=== PATIENT | female | born 2000 | race Caucasian/White ===

== ENCOUNTER 2025-06-02 09:17 | Emergency (ER) | payer OTHER, SELFPAY ==
--- OUTSIDE RECORDS SUMMARY | 2018-12-28 06:15 | XMS_ITS | Continuity of Care Document ---
Author Organization [facility] Address [address] [place] [address] Phone Care Team Providers Care Hoop Riveting Machine Operator Helper Name Role Phone Zhang Simon MD Unavailable Unavailable Allergies, Adverse Reactions, Alerts Substance Reaction Status Criticality No Known Allergies Active No Inform ation Medications Medication Instructions Dosage Effective Dates (start - stop) Status Comments olopatadine 0.1 % eye drops instill 1 drop by ophthalmic route 2 times every day into both eyes 1 drop - Active fluorometholone 0.1 % eye drops,suspension instill 1 drop by ophthalmic route 4 times every day into both eyes 1 drop - Active Zaditor 0.025 % (0.035 %) eye drops instill 1 drop by ophthalmic route 2 times every day into affected eye(s) 1.00 drop - No Longer Active Procedures Procedure Date Office/outpatient Visit, Est Office/outpatient Visit, New Advance Directives Directive Yes / No Effective Date File Name No Information Encounters Encounter Description Practice Location Reason(s) For Visit Diagnoses Date Provider Providers Copied on Encounter Office/outpa tient Visit, Est [facility], [address] [place] [address] [address], [place], [place], [id number], [place] tel:[phone] SEC Dragan WOLFE Professional 2 week f/u GPC/w Allergic Conjunctiviti s (chief complaint) GPC (giant papillary conjunctivit is)Allergic conjunctivit is of both eyes [address] Holcomb. [address] [facility], [facility] [place], [id number], [place]. tel:[phone] Referring Provider: Yaw Bello OD, [facility] [address] [facility], [place], [address]. tel:[phone] Office/outpa tient Visit, 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 [address] [facility], [address], [place], [place], [address], [place]. tel:[phone] Referring Provider: Yaw Bello OD, [facility] [address] [place], [address]. tel:[phone] Family History Family Member Type Diagnosis Age At Onset Father Problem (finding) Diabetes mellitus Payers Payer name Insurance type Covered republican ID Ruth rodriguez(s) Terrytna [id number] Social History Type Description Quantity Date Captured Comments Alcohol Use Details No Caffeine Use Details Tobacco Use Status Current non-smoker Smoking Status Never smoker Non-Smoking Tobacco Use Details : No Details Available : No Details Available Sex Female Chief Complaint And Reason For Visit From encounter dated '12/28/2018 11:15'. 2 week f/u GPC/w Allergic Conjunctivitis (chief complaint). Description: The 18 year old female presents for evaluation of 2 week f/u GPC/w Allergic Conjunctivitis in the right eye and left eye. Patient states her eyes are doing much better. Patient ran out of FML gtt and still using the olopatadine bid OU. Reason For Referral Reason For Referral No Information Plan Of Treatment Date Type Action Status Patient Education Learning About Your Eye s completed Patient Education Learning About Your Eye s completed History Of Present Illness Encounter Date Complaint History Of Prese nt Illness 2 week f/u GPC/w All ergic Conjunctivitis The 18 year old female presents for evaluation of 2 week f/u GPC/w Allergic Conjunctivitis in the right eye and left eye. Patient states her eyes are doing much better. Patient ran out of FML gtt and still using the olopatadine bid OU. evaluation The 18 year old female presents for evaluation of severe giant papillary conjunctivitis ou per Dr. Bello. Patient used zaditior but stopped because it made her eyes more red and hurt. Patient hasn't worn contacts x 3 days. Patient used Moxifloxacin and Poly. Patient states she had pink eye November 08. Patient also used Pazeo and Durezol which cleared her eye up and hasn't used those 2 drops since December 03. Patient states eyes still get swollen and red. Functional Status Date Functional Assessmen t No Information Instructions Date Instruction Additional Infor emmanuel Impression/Plan Impression/Plan Assessments Type Assessment Date assessment GPC (giant papillary conjunctivi tis) assessment Allergic conjunctivitis of both eyes Patient Care Teams Name Effective Dates (start - stop) Status Members No Information
[2025-06-02] VITALS (7 sets, daily range): BP systolic 115–136; BP diastolic 75–87; PULSE 82–101; RESP 13–19; TEMP 36.9; O2SAT 98–100
--- NOTE | ~2025-06-02 | XR_ITS ---
Clinical history:CVA EXAM:X-ray chest one view portable TECHNIQUE:A single portable AP upright frontal image of the chest was obtained Comparisons:None available FINDINGS: Heart is not enlarged. No pneumothorax. No pleural effusion. No free air the diaphragm. Small opacities in the lower lungs. IMPRESSION: 1.Small opacities in the mid and lower lungs which represents atelectasis/scarring or infiltrates. If symptoms persist or worsen, consider a short-term follow-up study or additional imaging for further assessment. Reviewed, dictated and finalized at location Q. IMPRESSION: 1.Small opacities in the mid and lower lungs which represents atelectasis/scarr ing or infiltrates. If symptoms persist or worsen, consider a short-term follow-up study or additio nal imaging for further assessment.
--- NOTE | ~2025-06-02 | CT_ITS ---
EXAMINATION: CT brain wo con DATE: 06/02/2025 09:35 INDICATION: Right-sided numbness. Left-sided headache TECHNIQUE: Computed tomography (CT) of the head was performed without intravenous contrast. The dose-length product was 529.67 mGy-cm. COMPARISON: None FINDINGS: No acute intracranial hemorrhage. No mass effect. No midline shift. No hydrocephalus. No skull fracture. Visualized paranasal sinuses mastoid air cells are clear. IMPRESSION: 1. No acute intracranial hemorrhage. No mass effect. Reviewed, dictated and finalized at location Q.
--- NOTE | ~2025-06-02 | CT_ITS ---
CTA NECK, CTA HEAD Clinical History: r facial numbness Comparison: Noncontrast CT head today TECHNIQUE: Helical images thoracic inlet to vertex IV contrast information not listed in PACS Coronal, sagittal reformats. Multi planar MIPS CT images acquired with automatic exposure control for dose reduction DLP: 973 mGy-cm Findings: NASCET Criteria utilized CTA NECK Aortic arch: No aneurysm or dissection. Great vessel origins: No stenosis. CCAs: No stenosis. Cervical ICAs: No stenosis. Vertebral Arteries: Patent. Lung Apices: Clear. Thyroid: Unremarkable. Nodes: No enlarged nodes. Bones: No acute bony abnormality. CTA HEAD: Aneurysms: None. Intracranial ICAs: Patent, unremarkable. ACAs and their distal branches: Patent, unremarkable. A-Comm: Identified. Patent, unremarkable. MCAs and their distal branches: Patent, unremarkable. Basilar artery: Patent, unremarkable. hydraulic oil tool operator and their distal branches: Patent. Right P1 congenitally absent; origin P-comm supply. P-Comms: Both side identified. IMPRESSION: CTA NECK: 1. No acute findings. CTA HEAD: 1. No acute findings. Reviewed, dictated and finalized at location R.
--- NOTE | 2025-06-02 09:28 | ECG_ITS ---
Test Date: 2025-06-02 09:40:51 Measurements Intervals [place] Rate: 77 P: 6 UT: 129 QRS: 3 QRSD: 93 T: -3 QT: 375 QTc: 426 Interpretive Statements SINUS RHYTHM VOLTAGE CRITERIA FOR LEFT VENTRICULAR HYPERTROPHY MINIMAL Q WAVES- HIGH LATERAL LEADS BASELINE ARTIFACT- I, II ,III, AVR, AVF, V1 BORDERLINE ECG No previous ECG available for comparison Electronically Signed On 06-02-2025 10:53:52 CDT by Ryder Rodgers D.O.
[2025-06-02 09:38] LABS: Hematocrit 45.1 % (37.0-47.0); Hemoglobin 15.0 g/dL (12.0-15.0); Immature Granulocyte Percent A 0.1 % (0-0.5); Lymphocytes Absolute Auto 2.51 K/mm3 (0.9-3.2); Mean Corpuscular HGB Conc 33.3 g/dl (32-36); Mean Corpuscular Hemoglobin 28.7 pg (26-34); Mean Corpuscular Volume 86.4 fl (80-100); Nucleated Red Blood Cells Absolute Auto 0.000 K/mm3 (0.0-0.012); Nucleated Red Blood Cells Perc 0.0 % (0.0-0.2); Platelet Count Result 262 k/mm3 (150-375); Red Blood Count 5.22 M/mm3 (4.2-5.4); White Blood Count 7.0 K/mm3 (4.5-10.0)
--- OUTSIDE RECORDS SUMMARY | 2025-06-02 09:41 | XMS_ITS | Clinical Summary ---
Author Organization [facility] [address] Address [address] [place] [address] Phone Care Team Providers Care Manager Long Term Care Name Role Phone Danyelle Potter MD Primary Care Provider [phone] Allergies No known active allergies Medications famotidine (PEPCID) 40 mg tablet Take 1 tablet (40 mg total) by mouth daily Active azelastine (ASTELIN) 137 mcg (0.1 %) nasal spray Administer 2 sprays into each nostril 2 (two) times a day Active cetirizine (ZyrTEC) 10 mg tablet Take 1 tablet (10 mg total) by mouth daily Active Winlevi 1 % cream 2 (two) times a day 5 Active spironolactone (ALDACTONE) 50 mg tablet Take 1 tablet (50 mg total) by mouth daily Active triamcinolone (NASACORT) 55 mcg nasal inhaler Administer 1 spray into each nostril 2 (two) times a day Active norgestimate-et hinyl estradioL (ORTHO-CYCLEN) 0.25-0.035 mg per tabletIndicatio ns:Dysmenorrhea Take 1 tablet by mouth daily 84 tablet 4 5 Active Active Problems Problem Noted Date Diagnosed Date Obesity (BMI 30-39.9) 08/31/2019 Myopia 02/24/2017 Dysmenorrhea 03/20/2014 Overview (02/24/2017): Cramps, irreg periods, hirsuit side cobos, acne - REFER Dr. Mckeon as desires OCPs 02/16 Hypermobility syndrome 03/20/2014 Overview (02/12/2017): Health care maintenance 03/15/2013 Overview (02/12/2017): Resolved Problems Problem Noted Date Diagnosed Date Resolved Date Folliculitis 03/20/2014 02/12/2017 Overview (11/07/2016): Folliculitis Overweight 03/20/2014 08/31/2019 Overview (02/24/2017): Improved 02/16 eating less Immunizations Immunization Administration Dates Next Due DTaP 5 Pertussis 01/23/2005, 1,05/07/2000,03/12,01/02/2000 HPV, Quadrivalent 02/27/2012,06/19/2011,02/12/20 11 Hep B / HiB 02/11/2001,01/02/2000 Hep B, Adolescent or Pediatric 1999 Hib (HbOC) 03/12/2000 IPV 01/23/2005, 1,03/12/2000,01/01 MMR 01/23/2005,2000 Meningococcal MCV4P (Menactra) 02/24/2017 Meningococcal Polysaccharide (Menomune) 02/11/2011 Pneumococcal Conjugate 7-Valent 02/12/20,08/20/2000,07/02/2000,03/12 Tdap 02/11/2011 Varicella 03/20/2014,2000 Surgical History Surgery Date Site/Laterality Comments TONSILLECTOMY 08/03/2001 - 08/02/2002 Medical History Medical History Date Comments Strunk 1999 7-3 40 wks to 21 y preg Anxiety and depression 2019 Medicatio n x 3-4 months, then discontinued. Family History Medical History Relation Name Comments Anxiety disorder Father SLIGHT Diabetes Father Anxiety disorder Maternal Grandmother Diabetes Other 1 Sudden Other 2 NONE Lupus Other 3 Scoliosis Other 4 Heart attack Paternal Grandfather Relation Name Status Comments Father Maternal Grandmother Other 1 Other 2 Other 3 Other 4 Paternal Grandfather Social History Tobacco Use Types Packs/Day Years Used Date Smoking Tobacco: Never Smokeless Tobacco: Never Tobacco Cessation:Counseling Given: Not Answered Alcohol Use Standard Drinks/Week Comments No 0 (1 standard drink = 0.6 oz pur e alcohol) Comments No Sex and Gender Information Value Date Recorded Sex Assigned at Not on file Legal Sex Female 1:51 AM BLOW MOLD OPERATOR Gender Identity Female 06/07/2020 9:59 AM BLOW MOLD OPERATOR Sexual Orientation Straight 06/07/2020 9: 59 AM BLOW MOLD OPERATOR 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 Not on file Not o n file Obstetrics History Para Term AB IAB SAB Ectopic Multiple Livin g Live Births 0 0 0 0 0 0 0 0 0 0 0 Last Filed Vital Signs Vital Sign Reading Time Taken Comments Blood Pressure 118/80 01/24/2025 12:13 PM CDT Pulse 82 12/15/2021 9:46 AM CDT Temperature 36.1 C (96.9 F) 12/12/2020 10:34 AM CDT Respiratory Rate 16 12/15/2021 9:46 AM CDT Oxygen Saturation 98% 12/15/2021 9:46 AM CDT Inhaled Oxygen Concentration - - Weight 77.1 kg (170 lb) 01/24/2025 12:13 PM CDT Height 163.8 cm (5' 4.5) 01/24/2025 12:13 PM CD T Body Mass Index 28.73 01/24/2025 12:13 PM CDT Plan of Treatment Health Maintenance Due Date Last Done Comments Depression Screening 1999 Hepatitis C Screening 1999 DTaP/Tdap/Td Vaccine (7 - Td or Tdap) 02/11/2021 02/11/2011, 01/23/2005, 02/11/2001, Additional history exists Cervical Cancer Screening 01/20/2024 01/19/2023, 07/2021 Influenza Vaccine (#1) 2025 Regular Well Visit/Exam 18-64 01/24/2026, 01/22/2024, 01/19/2023, Additional history exists Hepatitis B Screening Completed 02/11/2001 , 01/02/2000, 01/02/2000, Additional history exists Pneumococcal vaccine <65 Completed 001, 08/20/2000, 07/02/2000, Additional history exists HPV Vaccines Completed 02/27/2012, 06/03, 02/11/2011 Varicella Vaccines Completed 03/20/2014, 2000 Procedures Procedure Name Priority Date/Time Associated Diagnosis Comments PAP WITH REFLEX TO HIGH RISK HPV Routine 01/19/2023 10:45 AM CDT Screening for malignant neoplasm of the cervix from Last 3 Months or Most Recently Relevant to Health Maintenance Results * Pap with reflex to High Risk HPV (01/19/2023 10:45 AM CDT) Thin prep (Pap test) 01/19/2023 10:45 AM CDT 01/19/2023 10:45 AM CDT Narrative PATHOLOGY CH - 01/22/2023 11:23 AM CDT [facility] Department of Pathology [address] [place] [address] Final Report Note to Patients: This report may contain a detailed description of human tissue sent by a health care provider to the laboratory for pathologic evaluation. The content of this report is essential for diagnosis and may provide important critical findings. This information may be unfamiliar to patients to review without a medical professional present. It is advised that the patient review this report in the presence of a health care provider who can answer questions and explain the details. Patient Name: HEENA SUAREZ Address: [address] [place] [id number] Gender: F : 2000 (Age: 22) Service: Location: N : [id number] [facility] #: [id number] Patient Type: SPECIMEN Taken: 01/19/2023 Received: 01/19/2023 Accessioned:: 01/20/2023 Reported: 01/22/2023 Physician(s): MD Marilyn Li MD Diagnosis: SOURCE OF SPECIMEN Imaged Thinprep Pap Test w/ Reflex HPV - Clinical Studies Specialist Cytologic Material: STATEMENT OF ADEQUACY - Satisfactory for evaluation; endocervical/transformation zone component present GENERAL CATEGORIZATION: - Negative for intraepithelial lesion or malignancy ALANA Sorenson(ASCP) Report Electronically Reviewed and Signed Out By ALANA Sorenson(ASCP) 01/22/2023 11:23:50Specimen(s) Received: A: Imaged Thinprep Pap Test w/ Reflex HPV - Clinical Studies Specialist Cytologic Material Clinical History: Menstrual History: Previous Negative Pap The Pap test is a screening test used to aid in the detection of cervical cancer and its precursors. It should not be the sole means by which malignant and premalignant lesions are diagnosed. Both false negative and false positive results may occur. It also has poor sensitivity for the detection of endometrial lesions and should not be used to evaluate suspected endometrial abnormalities. For these reasons it is most important to obtain Pap tests at regular intervals. The performance characteristics of some immunohistochemical stains, fluorescence in-situ hybridization tests and immunophenotyping by flow cytometry cited in this report (if any) were determined by the Surgical Pathology Department at [facility] as part of an ongoing quality internship program and in compliance with federally mandated regulations drawn from the Clinical Laboratory Improvement Act of 1988 (CLIA '88). Some of these tests rely on the use of analyte specific reagents and are subject to specific labeling requirements by the US Food and Drug Administration. Such diagnostic tests may only be performed in a facility that is certified by the Department of Health and Human Services as a high complexity laboratory under CLIA '88. The FDA has determined that such clearance or approval is not necessary. This test is used for clinical purposes. It should not be regarded as investigational or for research. Nevertheless, federal rules concerning the medical use of analyte specific reagents require that the following disclaimer be attached to the report: This test was developed and its performance characteristics determined by the Surgical Pathology Department [facility]. It has not been cleared or approved by the U. S. Food and Drug Administration. Marilyn Mckeon MD LAB CYTOLOGY [place] [address] [place] [address] from Last 3 Months or Most Recently Relevant to Health Maintenance Insurance [facility] Care Teams Manager Long Term Care Relationship Specialty Start Date End Date Danyelle Potter MD [address] [place] [address] PCP - General 02/11/11
--- OUTSIDE RECORDS SUMMARY | 2025-06-02 09:41 | XMS_ITS | Clinical Summary ---
Author Organization [facility] Address [address] [place] [address] Phone Care Team Providers Care Milk Processing Worker Name Role Phone Provider, None Primary Care Provider Unavailabl e Allergies No known active allergies Medications etonogestrel (NEXPLANON) 68 MG Implant 1 implant subdermal 8 Active Active Problems No known active problems Social History Tobacco Use Types Packs/Day Years Used Date Smoking Tobacco: Never Smokeless Tobacco: Never Alcohol Use Standard Drinks/Week Comments Not Currently 0 (1 standard drink = 0.6 oz pur e alcohol) Sexually Active Control Partners Comments Not Currently Comments Unknown Sex and Gender Information Value Date Recorded Sex Assigned at Not on file Legal Sex Female 12:19 AM CDT Gender Identity Not on file Sexual Orientation Not on file Last Filed Vital Signs Vital Sign Reading Time Taken Comments Blood Pressure 116/76 06/23/2021 10:24 AM PILLOWCASE SEWER Pulse 123 06/23/2021 10:24 AM PILLOWCASE SEWER Temperature 37.1 C (98.8 F) 06/23/2021 10:24 AM PILLOWCASE SEWER Respiratory Rate 15 06/23/2021 10:24 AM PILLOWCASE SEWER Oxygen Saturation 98% 06/23/2021 10:24 AM PILLOWCASE SEWER Inhaled Oxygen Concentration - - Weight - - Height - - Body Mass Index - - Plan of Treatment Health Maintenance Due Date Last Done Comments Hepatitis C Virus (HCV) Screening 1999 Influenza Immunization (#1) 2025 SARS-COV-2 Immunization ( season) 2025 11/29/2020, 11/01/2020 Respiratory Syncytial Virus (RSV) Immunization (Adult) (1 - 1-dose 75+ series) 11/04/2074 Hepatitis B Immunization Completed 001, 01/02/2000, 01/02/2000, Additional history exists Pneumococcal Immunization Combined Aged Out 02/11/2001, 08/20/2000, 07/02/2000, Additional history exists No longer eligible based on patient's age to complete this topic Human Papillomavirus (HPV) Immunization Completed 02/27/2012, 06/19/2011, 02/11/2011 Meningococcal Immunization (ACWY) Completed 02/24/2017, 02/11/2011 DTaP/Tdap/Td Immunization Discontinued 2020, 02/11/2011, 01/23/2005, Additional history exists TdaP Immunization Completed 03/12/2021, 02/11/2011 Rotavirus Immunization Aged Out No lo nger eligible based on patient's age to complete this topic Insurance Care Teams Milk Processing Worker Relationship Specialty Start Date End Date Provider, None [place] PCP - General 06/26/21
--- OUTSIDE RECORDS SUMMARY | 2025-06-02 09:41 | XMS_ITS | Patient Health Record ---
Author Organization [facility] Address [address] [place], [place] [address] Care Team Providers Care Bale Tie Machine Operator Name Role Phone ELIUD DE JESUS MD, [facility] Primary Care Provider Un available Elizabeth Duran Unavailable [phone] Allergies No Known Allergies Reason For Referral No Information Medications Medication SIG (Take, Route, Fr equency, Duration) Notes Start Date End Date Status Spironolactone 100 MG TAKE 1 TABLET BY M OUTH EVERY DAY FOR 30 DAYS for 90 Active Famotidine Active Radha 0.25-35 MG-MCG Oral for 84 Days Active Winlevi 1 % APPLY TO AFFECTED AR EA(S) TWICE DAILY. for 30 days Active Olopatadine-Mometasone Active Immunizations Vaccine Route Administration Date Status Comme nts Influenza, unspecified formu lation (CPT 87216 Inactive) Unknown 05/02/2024 Refused Pneumococcal polysaccharide PPV23 Unknown 05/02/2024 Re fused Influenza, unspecified formu lation (CPT 40358 Inactive) Unknown 04/26/2025 Refused Pneumococcal polysaccharide PPV23 Unknown 04/26/2025 Re fused Social History Tobacco Use: Social History Observation Description Date Details (start date - stop date) Never Smoker NA - NA Tobacco Use/Smoking Question Answer Notes Are you a nonsmoker Problems Problem Type SNOMED Code ICD Code Onset Dates Problem Status W/U Status Risk Notes Problem Acne vulgaris (55718947) Acne vulgaris (L70.0) Active confirmed Patient intolerant of spironolactone 100 mg p.o. daily, decreased to 50 and was able to tolerate the medication and subsequently cleared when winlevi was added to her regimen, will continue Vital Signs Weight 175 lbs 04/26/2025 Encounters Encounter Location Date Provider [facility] [address] [place], [place] [id number] 08/10/2024 Elizabeth Duran Acne vulgaris L70.0 [facility] [address] [place], [place] [phone] 04/26/2025 Elizabeth Roger Acne vulgaris L70.0 Assessments Encounter Date Diagnosis (ICD Code) Assessment Notes Treatment Notes Treatment Clinical Notes Section Notes 08/10/2024 Acne vulgaris (ICD-10 - L70.0) Patient intolerant of spironolactone 100 mg p.o. daily, decreased to 50 and was able to tolerate the medication, however the clearance of her acne was only partial. For that reason we will add winlevi cream twice daily 04/26/2025 Acne vulgaris (ICD-10 - L70.0) Patient intolerant of spironolactone 100 mg p.o. daily, decreased to 50 and was able to tolerate the medication and subsequently cleared when winlevi was added to her regimen, will continue 08/10/2024 Other Learning About Sun Damage and Your Skin material was published Plan Of Treatment Next Appt Details Provider Name:Elizabeth Duran , 04/25/2026 02:30:00 PM, [address], [address], [place], [place], [id number], Insurance Providers Payer Name Payer Address Payer Phone Subscriber Number Group Number Insured Name Patient Relationship to Insured Coverage Start Date Coverage End Date [employer] [id number] [place] [address] [id number] HEENA SUAREZ Self - patient is the insured Medical (General) History Medical History History ICD Code G.E.R.D.
--- OUTSIDE RECORDS SUMMARY | 2025-06-02 09:41 | XMS_ITS | Patient Health Record ---
Author Organization [facility] [place] ([address]) Address [address] [place] [address] Care Team Providers Care Applications Support Analyst Name Role Phone Farrah Noguera Primary Care Provider Mary Gale Unavailable [phone] Allergies Allergen (clinical drug ingredient) Drug/Non Drug Allergy documented on EMR Reaction Allergy Type Onset Date Status Dust (uncoded) Sinus inflammati on and drainage Allergy Active Reason For Referral No Information Medications Medication SIG (Take, Route, Frequency, Duration) Notes Start Date End Date Status Cetirizine HCl 10 MG 1 tablet Orally Onc e a day; Duration: 30 days Active Triamcinolone Acetonide 55 MCG/ACT 1 spray in each nostril Nasally Twice a day; Duration: 90 days Active Apri 0.15-30 MG-MCG 1 tablet Orally Once a day Active Cetirizine HCl 10 MG TAKE 1 TABLET BY [facility] EVERY DAY FOR 30 DAYS; Duration: 90 Not-Taking Triamcinolone Acetonide 55 MCG/ACT ADMINISTER 1 SPRAY INTO EACH NOSTRIL TWICE A DAY; Duration: 30 Not-Taking Azelastine HCl 137 MCG/SPRAY SPRAY 2 SPRAYS INTO EACH NOSTRIL TWICE A DAY; Duration: 90 Active Winlevi 1 % External; Duration: 30 Days Active Spironolactone 50 MG 1 tablet Orally Onc e a day Active Olopatadine HCl 0.6 % 2 sprays in each nostril Nasally Twice a day; Duration: 90 days Active Nasal Washes N/A as directed intranasally Active Famotidine 40 MG 1 tablet Orally Once a day Active Immunizations Vaccine Route Administration Date Status Comme nts Hepatitis B (06-21) Unknown 02/11/2001 Administered Por tobias Information NOC PedvaxHIB Unknown 1999 Administered Portal In formation NOC Tdap Unknown 03/12/2021 Administered Portal Infor mation NOC Prevnar 13 Unknown 02/11/2001 Administered Portal I nformation Influenza Unknown 06/24/2023 Administered Portal Infor mation Social History Tobacco Use: Social History Observation Description Date Details (start date - stop date) Never Smoker NA - NA Sex Assigned At : Social History Observation Description Sex Assigned At Female Tobacco Control (Standard) Question Answer Notes Tobacco use: Nonsmoker AUDIT-C (Standard) Question Answer Notes Did you have a drink contain ing alcohol in the past year? Yes How often did you have a dri nk containing alcohol in the past year? 2 to 4 times a month (2 points) How many drinks did you have on a typical day when you were drinking in the past year? 1 or 2 drinks (0 point) How often did you have six o r more drinks on one occasion in the past year? Less than monthly (1 point) Points 3 Interpretation Positive Problems Problem Type SNOMED Code ICD Code Onset Dates Problem Status W/U Status Risk Notes Problem Allergic rhinitis caused by pollen (disorder) (42340174) Allergic rhinitis due to pollen (J30.1) Active confirmed Problem Allergic rhinitis caused by animal hair and dander (358910591081702 ) Allergic rhinitis due to animal (cat) (dog) hair and dander (J30.81) Active confirmed Problem Allergic rhinitis (08744289) Other allergic rhinitis (J30.89) Active confirmed Problem Gastro-esophagea l reflux disease without esophagitis (982331306) Gastro-esophage al reflux disease without esophagitis (K21.9) Active confirmed Vital Signs Oximetry 100 % 01/02/2025 Blood pressure diastolic 78 mm Hg 01/02/2025 Height 64 in 01/02/2025 Blood pressure systolic 121 mm Hg 01/02/2025 Weight 172.6 lbs 01/02/2025 BMI 29.62 kg/m2 01/02/2025 Encounters Encounter Location Date Provider Diagnosis [facility] [address] [place] [address] 07/11/2024 Mary Moore Other allergic rhinitis J30.89 ; Headache, unspecified R51.9 ; Gastro-esophageal reflux disease without esophagitis K21.9 and Elevated blood-pressure reading, without diagnosis of hypertension R03.0 [facility] [address] [place] [address] 12/20/2024 Mary Moore Other allergic rhinitis J30.89 ; Headache, unspecified R51.9 ; Gastro-esophageal reflux disease without esophagitis K21.9 and Elevated blood-pressure reading, without diagnosis of hypertension R03.0 [facility] [address] [place] [address] 01/02/2025 Mary Moore Allergic rhinitis du e to pollen J30.1 ; Allergic rhinitis due to animal (cat) (dog) hair and dander J30.81 ; Other allergic rhinitis J30.89 ; Headache, unspecified R51.9 ; Gastro-esophageal reflux disease without esophagitis K21.9 and Elevated blood-pressure reading, without diagnosis of hypertension R03.[address] [address] 01/03/2025 Mary Moore Assessments Encounter Date Diagnosis (ICD Code) Assessment Notes Treatment Notes Treatment Clinical Notes Section Notes 07/11/2024 Other allergic rhinitis (ICD-10 - J30.89) Lashanda endorses upper airway symptoms concerning for uncontrolled atopic disease, primarily nasal congestion, pressure and sinus headaches. She saw her PCP who ordered ImmunoCaps that were positive to DM. - Lashanda is unable to hold Pepcid at this time. Due to this unable to perform SPT for further evaluation. - Discussed avoidance measures and medication regimen. Lashanda reports significant benefit since starting daily regimen. - If symptoms persist despite these interventions, consider SPT to full aeroallergen panel. - Can also consider ENT and neurology evaluation, which we discussed last visit. - Follow-up in 4-6 months for further evaluation and management 07/11/2024 Headache, unspecified (ICD-10 - R51.9) Discussed correlation between headache disorders and uncontrolled atopic disease. Recommend aggressive treatment of atopic disease, see plan above. - Discussed consult with neurology, directed to [facility] 12/20/2024 Other allergic rhinitis (ICD-10 - J30.89) Lashanda endorses upper airway symptoms concerning for uncontrolled atopic disease, primarily nasal congestion, pressure and sinus headaches. She saw her PCP who ordered ImmunoCaps that were positive to DM. - Lashanda previously did not want to undergo SPT due to GERD symptoms, unable to hold Pepcid. She returns today interested in undergoing additional evaluation after her upper airway symptoms increased this Spring. She will need to hold antihistamines for 7-10 days prior to testing. - Discussed avoidance measures and medication regimen. - Return in 2 weeks for skin testing to aeroallergens 12/20/2024 Headache, unspecified (ICD-10 - R51.9) Discussed correlation between headache disorders and uncontrolled atopic disease. Recommend aggressive treatment of atopic disease, see plan above. - Discussed consult with neurology, directed to [facility] 01/02/2025 Allergic rhinitis due to pollen (ICD-10 - J30.1) Given the history and symptoms, skin testing was performed to common aeroallergens to determine atopic status. Lashanda clearly suffers from atopic disease based upon our skin testing today. Accordingly, we have introduced a new, aggressive medication regimen, discussed nasal washes and allergy-specific avoidance measures. We also discussed adjunctive therapies including subcutaneous, specific allergen immunotherapy as relates to the treatment and prevention of atopic disease. She is currently considering the risks, benefits and alternatives to this care. Risks: bleeding, infection, allergic reaction, anaphylaxis; Benefits: reduced need for medications, improved symptoms, disease modification. Alternatives: watch/wait, change medication regimen, improve allergy avoidance measures. - Previously had ImmunoCaps drawn positive to DM only, various positives noted today. - Lashanda is interested in SCIT via traditional scheduled. Premedicate with Zyrtec. Will send AIE when she is starting SCIT. - Follow-up in 4 weeks to start SCIT 01/02/2025 Allergic rhinitis due to animal (cat) (dog) hair and dander (ICD-10 - J30.81) Follow allergen avoidance, meds and consider SCIT as an adjunctive treatment to current regimen 01/02/2025 Other allergic rhinitis (ICD-10 - J30.89) Follow allergen avoidance, meds and consider SCIT as an adjunctive treatment to current regimen 12/20/2024 Gastro-esophagea l reflux disease without esophagitis (ICD-10 - K21.9) Lashanda admits to symptoms of GERD, currently taking Pepcid BID recommended by her PCP. - Lashanda reports she is unable to hold Pepcid due to worsening symptoms, previously recommended GI evaluation. She had a full work-up completed, confirming GERD with small hiatal hernia. Continues on Pepcid 07/11/2024 Gastro-esophagea l reflux disease without esophagitis (ICD-10 - K21.9) Lashanda admits to symptoms of GERD, currently taking Pepcid BID recommended by her PCP. - Lashanda reports she is unable to hold Pepcid due to worsening symptoms, consider GI evaluation. Instructed her to discuss with her PCP, she voiced understanding 07/11/2024 Elevated blood-pressure reading, without diagnosis of hypertension (ICD-10 - R03.0) BP elevated today without symptoms of urgency or emergency. Continue serial checks and follow-up with PCP 12/20/2024 Elevated blood-pressure reading, without diagnosis of hypertension (ICD-10 - R03.0) BP elevated today without symptoms of urgency or emergency. Continue serial checks and follow-up with PCP 01/02/2025 Headache, unspecified (ICD-10 - R51.9) Discussed correlation between headache disorders and uncontrolled atopic disease. Recommend aggressive treatment of atopic disease, see plan above. - Discussed consult with neurology, directed to [facility] 01/02/2025 Gastro-esophagea l reflux disease without esophagitis (ICD-10 - K21.9) Lashanda admits to symptoms of GERD, currently taking Pepcid BID recommended by her PCP. - Lashanda reports she is unable to hold Pepcid due to worsening symptoms, previously recommended GI evaluation. She had a full work-up completed, confirming GERD with small hiatal hernia. Continues on Pepcid 01/02/2025 Elevated blood-pressure reading, without diagnosis of hypertension (ICD-10 - R03.0) BP elevated today without symptoms of urgency or emergency. Continue serial checks and follow-up with PCP 07/11/2024 Other 01/02/2025 Other 12/20/2024 Other Plan Of Treatment No Information Insurance Providers Payer Name Payer Address Payer Phone Subscriber Number Group Number Insured Name Patient Relationship to Insured Coverage Start Date Coverage End Date [employer] Choice POS II [address] [place] [address] [id number] Lashanda Marcus Self - patient is the insured 3 Medical (General) History Surgical History Surgery Date(Month/Year) [place] Teeth 06/25/2020 Tonsil Removal 08/03/2001
[2025-06-02 09:52] LABS: INR 1.0; Prothrombin Time 13.0 Seconds (11.1-14.7)
[2025-06-02 09:53] LABS: Partial Thromboplastin Time 25.4 Seconds (22.3-36.8)
[2025-06-02 09:55] LABS: Alanine Aminotransferase 32 U/L (6-35); Albumin Level 4.8 g/dL (3.5-5.1); Alkaline Phosphatase 49 U/L (38-126); Anion Gap 10 mmol/L (4-12); Aspartate Amino Transferase 32 U/L (14-36); Bilirubin,Total 0.5 mg/dL (0.2-1.3); Blood Urea Nitrogen 17 mg/dL (7-17); Calcium 9.2 mg/dL (8.4-10.2); Carbon Dioxide 25 mmol/L (22-30); Chloride 103 mmol/L (98-107); Estimated CRCL calculation 96 ml/min; Estimated Glomerular Filt Rate > 60; Glucose 94 mg/dL (65-110); Potassium 3.9 mmol/L (3.4-5.0); Sodium 138 mmol/L (137-145); Total Protein 7.8 g/dL (6.3-8.2)
--- OUTSIDE RECORDS SUMMARY | 2025-06-02 11:01 | XMS_ITS | Clinical Summary ---
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 Patient Name: HEENA SUAREZ Address: [address] [place] [id number] Gender: F : 2000 (Age: 22) Service: Location: N : [id number] [facility] #: [id number] Patient Type: SPECIMEN Taken: 01/19/2023 Received: 01/19/2023 Accessioned:: 01/20/2023 Reported: 01/22/2023 Physician(s): MD Marilyn Li MD Diagnosis: SOURCE OF SPECIMEN Imaged Thinprep Pap Test w/ Reflex HPV - Spot Worker Cytologic Material: STATEMENT OF ADEQUACY - Satisfactory for evaluation; endocervical/transformation zone component present GENERAL CATEGORIZATION: - Negative for intraepithelial lesion or malignancy ALANA Sorenson(ASCP) Report Electronically Reviewed and Signed Out By ALANA Sorenson(ASCP) 01/22/2023 11:23:50Specimen(s) Received: A: Imaged Thinprep Pap Test w/ Reflex HPV - Spot Worker Cytologic Material Clinical History: Menstrual History: Previous [...] determined by the Surgical Pathology Department at [facility] as part of an ongoing quality control inspector heading program and in compliance with federally mandated [...] characteristics determined by the Surgical Pathology Department [facility]. It has not been cleared or approved by the U. S. Food and Drug Administration. Marilyn Mckeon MD LAB [place]OLOGY [place] [address] [place] [address] from Last 3 Months or Most Recently Relevant to Health Maintenance Insurance [facility] Care Teams Net Maker Relationship Specialty Start Date End Date Danyelle Potter MD [address] [place] [address] PCP - General 02/11/11
--- OUTSIDE RECORDS SUMMARY | 2025-06-02 11:01 | XMS_ITS | Clinical Summary ---
Author Organization [facility] Address [address] [place] [address] Phone Care Team Providers Care Machine Worker Name Role Phone Provider, None Primary [...] Comments Blood Pressure 116/76 06/23/2021 10:24 AM MARINE ENGINE DRIVER Pulse 123 06/23/2021 10:24 AM MARINE ENGINE DRIVER Temperature 37.1 C (98.8 F) 06/23/2021 10:24 AM MARINE ENGINE DRIVER Respiratory Rate 15 06/23/2021 10:24 AM MARINE ENGINE DRIVER Oxygen Saturation 98% 06/23/2021 10:24 AM MARINE ENGINE DRIVER Inhaled Oxygen Concentration - - Weight - [...] patient's age to complete this topic Insurance * Guarantor: Lashanda Marcus Account Type Relation to Patient Date of Phone Billing Address Personal/Family Self 2000 [id number] [address] [facility] Care Teams Machine Worker Relationship Specialty Start Date End Date Provider, None [place] PCP - General 06/26/21
--- NOTE | 2025-06-02 11:05 | ED.NEUROSD ---
HPI - Neuro Symptoms/Deficit General Chief Complaint: Neuro Symptoms/Deficit Stated Complaint: right sided numbness and left headache Time Seen by Provider: 06/02/25 10:09 Source: patient Mode of arrival: ambulatory Limitations: no limitations History of Present Illness HPI Narrative: This is a 24-year-old female with no significant past medical history who presents to the ED for numbness and headache. Patient states that she had onset of a left headache behind her left eye. She was sitting at work about an hour prior to arrival when she had onset of right hand numbness that radiated up to her forearm circumferentially and then up to her right face. She has never had this before. Denies weakness, changes in vision. Related Data Allergies Allergy/AdvReac Type Severity Reaction Status Date / Time No Known Allergies Allergy Verified 06/02/25 09:49 Review of Systems Review of Systems: Gen.: Denies fevers or chills Eyes: Denies eye pain or visual change ENT: Denies congestion Respiratory: Denies shortness of breath or cough CV: Denies chest pain or palpitations GI: Denies abdominal pain nausea, emesis or diarrhea denies burning, urgency, frequency or hematuria Musculoskeletal: Denies back pain or muscle pain Neuro: As per HPI Skin: Denies rash Except as documented, all other systems reviewed and negative Exam Narrative: APPEARANCE: No acute distress, nontoxic, resting in bed EYES: EOMI HEENT: Normocephalic, atraumatic, OMM RESPIRATORY: No respiratory distress Clear to auscultation bilaterally with no rhonchi wheezing or rales. CARDIOVASCULAR: Regular rate and rhythm without murmurs rubs or gallops. ABDOMINAL: Soft, nontender, nondistended, no rebound or guarding MUSCULOSKELETAl: Moves all extremities. No clubbing, cyanosis or edema. NEURO: Awake and alert. Following commands, speech normal, no focal deficits. NIHSS 1 due to numbness to the right face SKIN:: Warm, dry. No rashes lesions or abrasions PSYCHIATRIC: Normal affect/mood, Course Vital Signs Vital signs: Vital Signs Pulse Rate 93 06/02/25 09:38 Respiratory Rate 13 06/02/25 09:38 Blood Pressure 136/87 06/02/25 09:38 Pulse Oximetry 99 06/02/25 09:38 Temperature 98.5 F 06/02/25 09:39 Pulse Rate 101 H 06/02/25 11:31 Respiratory Rate 13 06/02/25 11:31 Blood Pressure 120/75 06/02/25 11:31 Pulse Oximetry 100 06/02/25 11:31 Oxygen Delivery Room Air 06/02/25 09:39 MDM - Neuro Symptoms/Deficit MDM Narrative Medical decision making narrative: 24-year-old female Presenting for right facial numbness. On initial evaluation patient was in no acute distress afebrile, hemodynamic stable. Patient is taken immediately to stroke., she did have numbness over the right side of her face only. NIH SS 1. CT head negative. Differentials include but are not limited to: CVA, migraine, electrolyte abnormality, viral syndrome Notable exam findings: NIHSS 1, remaining exam within normal limits Notable lab findings: CBC and CMP were without significant abnormalities. Troponin negative. Notable imaging findings: CT head showed no acute process. CTA head showed no acute process. Chest x-ray showed no acute process. Re-evaluation, patient had resolution of her numbness but had onset of a left-sided headache. This had happened previously with a prior migraine. Suspect that patient does have a complex migraine that caused her symptoms. She was given Compazine, Toradol, Benadryl it had near resolution of her headache. She was given a referral to Neurology for further evaluation. Patient was agreeable to this plan. Given strict return precautions. Medical Records Attestation: I reviewed the patient's medical records. Lab Data Attestation: I reviewed the patient's lab results. 06/02/25 09:31 06/02/25 09:31 Labs: Lab Results 06/02/25 06/02/25 Range/Units 09:21 09:31 WBC 7.0 (4.5-10.0) K/mm3 RBC 5.22 (4.2-5.4) M/mm3 Hgb 15.0 (12.0-15.0) g/dL Hct 45.1 (37.0-47.0) % MCV 86.4 (80-100) fl MCH 28.7 (26-34) pg MCHC 33.3 (32-36) g/dl RDW 12.0 (11.5-14.5) % Plt Count 262 (150-375) k/mm3 MPV 9.9 (7.4-10.4) fl Immature Gran % (Auto) 0.1 (0-0.5) % Neut % (Auto) 49.7 (45.5-73.1) % Lymph % (Auto) 36.0 (18.3-44.2) % [place] % (Auto) 9.5 H (2.6-8.5) % Eos % (Auto) 3.6 (0-4.4) % Baso % (Auto) 1.1 (0.2-1.2) % Lymph # (Auto) 2.51 (0.9-3.2) K/mm3 [place] # (Auto) 0.7 H (0.1-0.6) K/mm3 Eos # (Auto) 0.3 (0-0.3) K/mm3 Baso # (Auto) 0.1 (0.0-0.1) K/mm3 Abs Immat Gran (auto) 0.01 (0.00-0.031) K/mm3 Absolute Neuts (auto) 3.5 (1.3-6.7) K/mm3 Absolute Nucleated RBC 0.000 (0.0-0.012) K/mm3 Nucleated RBC % 0.0 (0.0-0.2) % PT 13.0 (11.1-14.7) Seconds INR 1.0 APTT 25.4 (22.3-36.8) Seconds Sodium 138 (137-145) mmol/L Potassium 3.9 (3.4-5.0) mmol/L Chloride 103 (98-107) mmol/L Carbon Dioxide 25 (22-30) mmol/L Anion Gap 10 (4-12) mmol/L BUN 17 (7-17) mg/dL Creatinine 0.79 (0.7-1.0) mg/dL Estim Creat Clear Calc 96 ml/min Estimated GFR > 60 (59 - ) Glucose 94 (65-110) mg/dL POC Capillary Glucose 98 (65-105) mg/dl Calcium 9.2 (8.4-10.2) mg/dL Total Bilirubin 0.5 (0.2-1.3) mg/dL AST 32 (14-36) U/L ALT 32 (6-35) U/L Alkaline Phosphatase 49 (38-126) U/L Troponin I < 0.012 (0.000-0.034) ng/mL Total Protein 7.8 (6.3-8.2) g/dL Albumin 4.8 (3.5-5.1) g/dL Imaging Data Attestation: I personally reviewed and interpreted this imaging study as follows: Radiologist's impression: Impressions Head CT 06/02/25 09:36 IMPRESSION: 1. No acute intracranial hemorrhage. No mass effect. Chest X-Ray 06/02/25 09:58 IMPRESSION: 1.Small opacities in the mid and lower lungs which represents atelectasis/scarring or infiltrates. If symptoms persist or worsen, consider a short-term follow-up study or additional imaging for further assessment. Head/Neck CTA 06/02/25 10:24 IMPRESSION: CTA NECK: 1. No acute findings. CTA HEAD: 1. No acute findings. ECG Data EKG #1: Attestation: I personally reviewed and interpreted this ECG as follows: ECG completion date: 06/02/25 ECG completion time: 09:40 Interpretation: Was sinus rhythm rate of 77, normal axis, normal intervals, and no acute ST or T-wave changes Discharge Plan Discharge Clinical Impression: Migraine Qualifiers: Migraine type: migraine (< 15 days per month) with aura Status migrainosus presence: without status migrainosus Intractability: not intractable Qualified Code(s): G43.109 - Migraine with aura, not intractable, without status migrainosus Patient Disposition: Home Condition: Stable Instructions: Antibiotic Form, Migraine Headache (ED) Additional Instructions: CT scans of your head were reassuring. You likely had a complex migraine that caused or numbness. Your given medications for her migraine. He may take Tylenol and ibuprofen at home for the pain. Your given a referral to Dr. Cooper, neurology, follow up with his office in the next week for re-evaluation. Return to the ED for any new or worsening symptoms. For pain, discomfort or temperature greater than or equal to 100.8 ?F please alternate the following 2 medications as needed. First medication- acetaminophen/Tylenol- 1000mg every 6-8 hours as needed for above indications. Second medication- ibuprofen/Motrin-600mg every 6-8 hours as needed for above indication. Patient Language: [place] Citizen Follow-up/Referrals: Justina Cooper MD [Physician, Neurology] PHYSICIAN NOT ON STAFF,NONSTAFF [Primary Care Provider]
[2025-06-02] MEDS: KETOROLAC 30 MG/ML VIAL (*BKC) IV PUSH (11:15)
[2025-06-02] MEDS: PROCHLORPERAZINE EDISYLATE 10 MG/2 ML VIAL IV PUSH (11:19)
[2025-06-02 13:01] LABS: Troponin I < 0.012 ng/mL (0.000-0.034)
== END 2025-06-02 12:01 | disposition home or self-care (01) ==
PROVIDERS: Emergency Provider Student in an Organized Health Care Education/Training Program
DX: G43.109 Migraine with aura, not intractable, without status migrainosus (principal)
CPT/HCPCS: 36415; 70450; 70496; 70498; 71045; 80053; 82948; 84484; 85025; 85610; 85730; 93005; 96374; 96375; 99284; J0780; J1200; J1885; Q9967